=== PATIENT | male | born 1990 | race Caucasian/White ===

== ENCOUNTER 2018-08-19 13:14 | Emergency (ER) | payer OTHER ==
--- NOTE | 2018-08-19 13:34 | ER Document Report ---
ED Medical Screen (RME) - General Chief Complaint: Bloody Stools Stated Complaint: ABDOMINAL PAIN Time Seen by Provider: 08/19/18 13:32 Mode of Arrival: Ambulatory Information source: Patient TRAVEL OUTSIDE OF THE [place] IN LAST 30 DAYS: No - HPI Patient complains to provider of: abd pain; rectal bleeding Onset: This morning - pt. with onset of abdominal pain and rectal bleeding earlier today - Related Data Allergies/Adverse Reactions: No Known Allergies Allergy (Verified 08/19/18 13:15) Physical Exam - Vital signs Vitals: Temp Pulse Resp BP Pulse Ox 99.4 F 95 14 134/86 H 98 08/19/18 13:17 08/19/18 13:17 08/19/18 13:17 08/19/18 13:17 08/19/18 13:17 Course - Vital Signs Vital signs: Temp Pulse Resp BP Pulse Ox 99.4 F 95 14 134/86 H 98 08/19/18 13:17 08/19/18 13:17 08/19/18 13:17 08/19/18 13:17 08/19/18 13:17
[2018-08-19 14:21] LABS: ABSOLUTE EOSINOPHILS # (AUTO) 0.1 10^3/uL (0.0-0.6); ABSOLUTE LYMPHOCYTES (AUTO) 0.8 10^3/uL (0.5-4.7); ABSOLUTE MONOCYTES (AUTO) 0.4 10^3/uL (0.1-1.4); ABSOLUTE NEUT (AUTO) 7.3 10^3/uL (1.7-8.2); BASOPHILS % (AUTO) 0.2 % (0-2); HEMATOCRIT 48.5 % (37.9-51.0); HEMOGLOBIN 16.6 g/dL (13.5-17.0); LYMPHOCYTES % (AUTO) 9.6 % (13-45); MEAN CORPUSCULAR HEMOGLOBIN 31.7 pg (27.0-33.4); MEAN CORPUSCULAR HGB CONC 34.2 g/dL (32.0-36.0); MEAN CORPUSCULAR VOLUME 93 fl (80-97); MONOCYTES % (AUTO) 5.2 % (3-13); PLATELET COUNT 186 10^3/uL (150-450); RED BLOOD COUNT 5.23 10^6/uL (4.35-5.55); RED CELL DISTRIBUTION WIDTH 13.2 % (11.5-14.0); TOTAL CELLS COUNTED % (AUTO) 100 %; WHITE BLOOD COUNT 8.6 10^3/uL (4.0-10.5)
[2018-08-19 14:22] LABS: APPEARANCE,URINE CLEAR; BILIRUBIN,URINE NEGATIVE (NEGATIVE); COLOR,URINE YELLOW; GLUCOSE, URINE NEGATIVE (NEGATIVE); KETONES,URINE NEGATIVE (NEGATIVE); LEUKOCYTE ESTERASE,URINE NEGATIVE (NEGATIVE); NITRITE,URINE NEGATIVE (NEGATIVE); PROTEIN,URINE 100 mg/dL (NEGATIVE); URINE SPECIFIC GRAVITY 1.019; UROBILINOGEN,URINE NEGATIVE mg/dL (<2.0)
[2018-08-19 14:35] LABS: ALANINE AMINOTRANSFERASE 35 U/L (21-72); ALBUMIN 4.3 g/dL (3.5-5.0); ALKALINE PHOSPHATASE 45 U/L (38-126); ANION GAP 8 (5-19); ASPARTATE AMINO TRANSFERASE 43 U/L (17-59); BILIRUBIN,DIRECT 0.2 mg/dL (0.0-0.4); BILIRUBIN,TOTAL 0.5 mg/dL (0.2-1.3); BLOOD UREA NITROGEN 7 mg/dL (7-20); CALCIUM 9.3 mg/dL (8.4-10.2); CARBON DIOXIDE 31 mmol/L (22-30); CHLORIDE 105 mmol/L (98-107); GLUCOSE 105 mg/dL (75-110); POTASSIUM 4.5 mmol/L (3.6-5.0); SODIUM 144.2 mmol/L (137-145); TOTAL PROTEIN 6.5 g/dL (6.3-8.2)
[2018-08-19] MEDS ORDERED: ONDANSETRON 4 MG TAB.RAPDIS PO ONE (15:01)
[2018-08-19] MEDS ORDERED: FAMOTIDINE 20 MG TABLET PO ONE (15:01)
--- NOTE | 2018-08-19 15:02 | ER Document Report ---
ED General - General Chief Complaint: Bloody Stools Stated Complaint: ABDOMINAL PAIN Time Seen by Provider: 08/19/18 13:32 Mode of Arrival: Ambulatory TRAVEL OUTSIDE OF THE [place] IN LAST 30 DAYS: No - HPI Patient complains to provider of: Blood in stool abdominal pain Notes: Patient coming in for evaluation of blood in stool and abdominal pain. Patient states he was drinking heavily the night prior to arrival states he was whiskey. Patient does admit to also eating cranberry sauce at night prior to arrival patient coming in today for diffuse abdominal pain but however does point to the right lower quadrant denies any fevers does states he is having chills. Patient states he had multiple episodes of bright red bloody diarrhea. Patient denies a [place] past medical history states only drinks socially and last night was a social occasion. Denies any recent antibiotics or recent travel. Patient resting comfortably upon my evaluation. - Related Data Allergies/Adverse Reactions: No Known Allergies Allergy (Verified 08/19/18 13:15) Past Medical History - General Information source: Patient - Social History Smoking Status: Current Some Day Smoker Frequency of alcohol use: Occasional Family History: None Patient has suicidal ideation: No Patient has homicidal ideation: No Renal/ Medical History: Denies: Hx Peritoneal Dialysis Review of Systems - Review of Systems Constitutional: No symptoms reported EENT: No symptoms reported Cardiovascular: No symptoms reported Respiratory: No symptoms reported Gastrointestinal: Abdominal pain, Rectal bleeding Genitourinary: No symptoms reported Male Genitourinary: No symptoms reported Musculoskeletal: No symptoms reported Skin: No symptoms reported Hematologic/Lymphatic: No symptoms reported Neurological/Psychological: No symptoms reported -: Yes All other systems reviewed and negative Physical Exam - Vital signs Vitals: Temp Pulse Resp BP Pulse Ox 99.4 F 95 14 134/86 H 98 08/19/18 13:17 08/19/18 13:17 08/19/18 13:17 08/19/18 13:17 08/19/18 13:17 Interpretation: Normal - General General appearance: Appears well, Alert - HEENT Head: Normocephalic, Atraumatic Eyes: Normal Pupils: PERRL - Respiratory Respiratory status: No respiratory distress Chest status: Nontender Breath sounds: Normal Chest palpation: Normal - Cardiovascular Rhythm: Regular Heart sounds: Normal auscultation Murmur: No - Abdominal Inspection: Normal Distension: No distension Bowel sounds: Normal Tenderness: Nontender Organomegaly: No organomegaly - Rectal Tenderness: No Stool: Heme negative Hemorrhoids: None Prostate: Normal - Back Back: Normal, Nontender - Extremities General upper extremity: Normal inspection, Nontender, Normal color, Normal ROM, Normal temperature General lower extremity: Normal inspection, Nontender, Normal color, Normal ROM, Normal temperature, Normal weight bearing. No: Jessica's sign - Neurological Neuro grossly intact: Yes Cognition: Normal Orientation: AAOx4 [place] Coma Scale Eye Opening: Spontaneous [place] Coma Scale Verbal: Oriented [place] Coma Scale Motor: Obeys Commands [place] Coma Scale Total: 15 Speech: Normal Motor strength normal: LUE, RUE, LLE, RLE Sensory: Normal - Psychological Associated symptoms: Normal affect, Normal mood - Skin Skin Temperature: Warm Skin Moisture: Dry Skin Color: Normal Course - Re-evaluation Re-evalutation: 08/19/18 14:58 Hemoccult card was negative for any blood. Stool is very light brown. Patient's laboratory studies not show any critical findings at this time. More likely abdominal pain could be related to the patient's recent alcohol use. Did educate the patient on the use of Zofran and Bentyl for his pain Tylenol Motrin also for his pain patient states understanding also states understanding of a bland diet for the next 24 hours consisting of clear liquids and advancing to starchy foods. Patient will be discharged on follow-up primary care physician. The patient presents with abdominal pain without signs of peritonitis or other life-threatening or serious etiology. The patient appears stable for discharge and has been instructed to return immediately if the symptoms worsen in any way, or in 8-12hr if not improved for re-evaluation. The patient has been instructed to return if the symptoms worsen or change in any way. - Vital Signs Vital signs: Temp Pulse Resp BP Pulse Ox 98 F 75 18 147/86 H 100 08/19/18 15:46 08/19/18 15:46 08/19/18 15:46 08/19/18 15:46 08/19/18 15:46 - Laboratory Result Diagrams: 08/19/18 13:58 08/19/18 13:58 Laboratory results interpreted by me: 08/19/18 08/19/18 08/19/18 13:58 13:58 13:58 Seg Neutrophils % 84.0 H Lymphocytes % 9.6 L Carbon Dioxide 31 H Urine Protein 100 H Discharge - Discharge Clinical Impression: No problem, feared complaint unfounded, Abdominal pain Disposition: HOME, SELF-CARE Instructions: Abdominal Pain ([facility]), Observation for Appendicitis ([facility]) Additional Instructions: Your evaluation does not reveal any blood in your stool also no signs of any anemia hemoglobin hematocrit also stable. Do not suspect any signs of infection is that you have no fever here and a normal white count. I recommend eating a bland diet for the next 24 hours consisting of mostly liquids when you tolerate liquids I would advance to starchy foods such as toast rice . Please avoid any excess alcohol. He may take the pepcid as prescribed for abdominal pain he may also take Zofran as prescribed for nausea. I would also recommend Tylenol and Motrin for pain return to ER symptoms worsen. Prescriptions: Famotidine [Pepcid 20 mg Tablet] 20 mg PO BID #12 tablet Ondansetron HCl [Zofran 4 mg Tablet] 1 - 2 tab PO Q6 #30 tablet Forms: Return to Work Referrals: [facility] [[facility]] - Follow up as needed
--- NOTE | 2018-08-19 15:07 | RADIOLOGY REPORT (SQ) ---
EXAM DESCRIPTION: ACUTE ABDOMEN SERIES COMPLETED DATE/TIME: 08/19/2018 2:30 pm REASON FOR STUDY: abd pain COMPARISON: None. NUMBER OF VIEWS: Three views. TECHNIQUE: Frontal chest, supine abdomen and upright/decubitus abdomen radiographic images acquired. LIMITATIONS: None. FINDINGS: CHEST: Lungs clear of infiltrates. FREE AIR: None. No abnormal gas collections. BOWEL GAS PATTERN: General paucity of small bowel gas, a nonspecific pattern. No obvious fluid diste nded loops to suggest obstruction. CALCIFICATIONS: No suspicious calcifications. HARDWARE: None in the abdomen. SOFT TISSUES: No gross mass or suggestion of organomegaly. BONES: No acute fracture. No worrisome bone lesions. OTHER: No other significant finding. IMPRESSION: 1. No acute abnormality of the lungs. 2. General paucity of small bowel gas, a nonspecific pattern. There is scattered colonic gas present to the descending colon. No obvious fluid distended loops of bowel to suggest obstruction. No free air in the abdomen. TECHNICAL DOCUMENTATION: JOB ID: [id number] [employer]- All Rights Reserved Reading location - IP/workstation name: [email or web address]
[2018-08-19 16:58] VITALS: BP 147/86
== END 2018-08-19 15:46 | disposition home or self-care (01) ==
LOC: ER 13:14
DX: R10.9 Unspecified abdominal pain (principal); R19.5 Other fecal abnormalities; R10.31 Right lower quadrant pain; F17.200 Nicotine dependence, unspecified, uncomplicated
CPT/HCPCS: 99284; 36415; 83690; 85025; 80053; 81001; 74022; S0119